=== PATIENT | female | born 1960 | race Caucasian/White ===

== ENCOUNTER 2016-09-12 01:18 | Emergency (ER) | payer SELFPAY ==
[~2016-09-12] VITALS: Ht 180.3 cm; Wt 63.5 kg
--- NOTE | 2016-09-12 01:18 | NUR ---
PT BIB [facility], PREBOOK. TAKEN TO BED 6
--- NOTE | 2016-09-12 01:25 | NUR ---
PT BIB [facility] DUE TO PRE-BOOK. PT REFUSING ANY TREATMENT AT THIS TIME. ER MADE AWARE.
--- NOTE | 2016-09-12 01:39 | NUR ---
Dr. Ross evaluating patient at bedside.
--- NOTE | 2016-09-12 01:50 | NUR ---
Patient discharged with v/s stable. Written and verbal after care instructions given and explained. Patient verbalized understanding. Police with in custody. All questions addressed prior to discharge. Advised to follow up with PMD.
== END 2016-09-12 01:50 ==
LOC: MED 01:18
DX: Z02.89 Encounter for other administrative examinations (principal); S00.81XA Abrasion of other part of head, initial encounter; X58.XXXA Exposure to other specified factors, initial encounter; Y93.02 Activity, running; Y92.89 Other specified places as the place of occurrence of the external cause; Y99.8 Other external cause status
CPT/HCPCS: 99283